=== PATIENT | male | born 1970 | race Caucasian/White ===

== ENCOUNTER 2021-10-03 05:37 | Emergency (ER) | payer OTHER ==
[2021-10-03 06:37] LABS: Basophils # (A) 0.1 k/uL (0-0.2); Basophils % (A) 1 %; Eosinophils % (A) 0 %; HCT 42.3 % (39.0-53.0); HGB 14.7 gm/dL (13.0-17.5); Lymphocytes % (A) 11 %; MCH 31.3 pg (25.0-35.0); MCHC 34.8 g/dL (31.0-37.0); MCV 89.9 fL (80.0-100.0); Monocytes # (A) 0.5 k/uL (0-1.0); Monocytes % (A) 6 %; Neutrophils # (A) 7.5 k/uL (1.3-7.7); Neutrophils % (A) 82 %; Platelet Count 238 k/uL (150-450); RBC 4.71 m/uL (4.30-5.90); RDW 12.2 % (11.5-15.5); WBC 9.2 k/uL (3.8-10.6)
--- NOTE | 2021-10-03 06:39 | ED ---
General Adult HPI - General Chief complaint: Shortness of Breath Stated complaint: SOB Time Seen by Provider: 10/03/21 06:14 Source: patient, RN notes reviewed Mode of arrival: EMS Limitations: no limitations - History of Present Illness Initial comments: Patient 51-year-old male presented to the emergency room today with multiple complaints. Patient does admit that over the last 2 days has not been feeling well. He does admit that he's had slight cough and some congestion. He denies feeling short of breath. Patient does admit that he's felt dehydrated. His been drinking sugar and salt water mixture at home. He does admit that he was able to. He didn't have bowel movement this morning. Patient also admits that he's had some dental pain. Does admit that she's had this going on for some time but seems to be "more tender. Patient denies any other complaints or symptoms currently. Patient denies any recent shortness of breath, chest pain, back pain, abdominal pain, nausea or vomiting, numbness or tingling, dysuria or hematuria, constipation or diarrhea, headaches or visual changes, or any other complaints. - Related Data Previous Rx's Medication Instructions Recorded Amoxicillin/Potassium Clav 1 tab PO BID 10 Days #20 tab 10/03/21 [Augmentin 875-125 Tablet] Allergies Allergy/AdvReac Type Severity Reaction Status Date / Time No Known Allergies Allergy Verified 10/03/21 07:18 Review of Systems ROS Statement: Those systems with pertinent positive or pertinent negative responses have been documented in the HPI. ROS Other: All systems not noted in ROS Statement are negative. Past Medical History Past Medical History: Hypertension Smoking Status: Former smoker General Exam - General Exam Comments Initial Comments: General: The patient is awake and alert, in no distress, and does not appear acutely ill. Eye: Pupils are equal, round and reactive to light, extra-ocular movements are intact. No nystagmus. There is normal conjunctiva bilaterally. No signs of icterus. Ears, nose, mouth and throat: There are moist mucous membranes and no oral lesions. Neck: The neck is supple, there is no tenderness or JVD. Cardiovascular: There is a regular rate and rhythm. No murmur, rub or gallop is appreciated. Respiratory: Lungs are clear to auscultation, respirations are non-labored, breath sounds are equal. No wheezes, stridor, rales, or rhonchi. Gastrointestinal: Soft, non-distended, non-tender abdomen without masses or organomegaly noted. There is no rebound or guarding present. No CVA tenderness. Bowel sounds are unremarkable. Musculoskeletal: Normal ROM, no tenderness. Strength 5/5. Sensation intact. Pulses equal bilaterally 2+. Neurological: A&O x 3. CN II-XII intact, There are no obvious motor or sensory deficits. Coordination appears grossly intact. Speech is normal. Skin: Skin is warm and dry and no rashes or lesions are noted. Psychiatric: Cooperative, appropriate mood & affect, normal judgment. Limitations: no limitations Course Vital Signs 10/03/21 10/03/21 10/03/21 05:43 05:51 06:48 Temperature 100.2 F H Pulse Rate 116 H Respiratory 18 19 Rate Blood Pressure 154/106 O2 Sat by Pulse 96 Oximetry EKG Findings - EKG Comments: EKG Findings:: EKG performed: 0555. Normal sinus tachycardia to 113 bpm. DE interval 166. QRS 102. QT/QTc 311/378. No acute ST changes. Medical Decision Making - Medical Decision Making Patient reexamined is resting comfortable. Patient does admit to feeling better here in the emergency room. He has declined Tylenol. Patient also declined a covid test. Patient has been tachycardic but does have low-grade fever. Patient states he does not want a nasal swab. His chest x-ray is reviewed and does show evidence of pneumonia that would be consistent with a cold.. He also admits to some dental pain. Patient's vitals been stable. Pulse ox remained s table with ambulation. Was discussed with patient about concern for covert pneumonia. He is advised to return to emergency room if the symptoms increase or worsen. He'll be started on antibiotics of Augmentin to cover for pneumonia/dental infection. Is advised return for any other concerns. He states understanding and is agreement. - Lab Data Result diagrams: 10/03/21 06:27 10/03/21 06:27 Lab Results 10/03/21 10/03/21 10/03/21 Range/Units 06:27 06:27 06:27 WBC 9.2 (3.8-10.6) k/uL RBC 4.71 (4.30-5.90) m/uL Hgb 14.7 (13.0-17.5) gm/dL Hct 42.3 (39.0-53.0) % MCV 89.9 (80.0-100.0) fL MCH 31.3 (25.0-35.0) pg MCHC 34.8 (31.0-37.0) g/dL RDW 12.2 (11.5-15.5) % Plt Count 238 (150-450) k/uL MPV 8.0 Neutrophils % 82 % Lymphocytes % 11 % Monocytes % 6 % Eosinophils % 0 % Basophils % 1 % Neutrophils # 7.5 (1.3-7.7) k/uL Lymphocytes # 1.0 (1.0-4.8) k/uL Monocytes # 0.5 (0-1.0) k/uL Eosinophils # 0.0 (0-0.7) k/uL Basophils # 0.1 (0-0.2) k/uL D-Dimer (<0.60) mg/L FEU Sodium 128 L (137-145) mmol/L Potassium 3.7 (3.5-5.1) mmol/L Chloride 98 (98-107) mmol/L Carbon Dioxide 22 (22-30) mmol/L Anion Gap 8 mmol/L BUN 15 (9-20) mg/dL Creatinine 1.14 (0.66-1.25) mg/dL Est GFR (CKD-EPI)AfAm 87 (>60 ml/min/1.73 sqM) Est GFR (CKD-EPI)NonAf 76 (>60 ml/min/1.73 sqM) Glucose 127 H (74-99) mg/dL Calcium 7.9 L (8.4-10.2) mg/dL Total Bilirubin 1.0 (0.2-1.3) mg/dL AST 72 H (17-59) U/L ALT 39 (4-49) U/L Alkaline Phosphatase 35 L (38-126) U/L Troponin I (0.000-0.034) ng/mL Total Protein 6.9 (6.3-8.2) g/dL Albumin 3.8 (3.5-5.0) g/dL Urine Color Colorless Urine Appearance Clear (Clear) Urine pH 6.0 (5.0-8.0) Ur Specific [place] 1.002 (1.001-1.035) Urine Protein Negative (Negative) Urine Glucose (UA) Negative (Negative) Urine Ketones Negative (Negative) Urine Blood Small H (Negative) Urine Nitrite Negative (Negative) Urine Bilirubin Negative (Negative) Urine Urobilinogen <2.0 (<2.0) mg/dL Ur Leukocyte Esterase Negative (Negative) Urine RBC <1 (0-5) /hpf 10/03/21 10/03/21 Range/Units 06:27 06:28 WBC (3.8-10.6) k/uL RBC (4.30-5.90) m/uL Hgb (13.0-17.5) gm/dL Hct (39.0-53.0) % MCV (80.0-100.0) fL MCH (25.0-35.0) pg MCHC (31.0-37.0) g/dL RDW (11.5-15.5) % Plt Count (150-450) k/uL MPV Neutrophils % % Lymphocytes % % Monocytes % % Eosinophils % % Basophils % % Neutrophils # (1.3-7.7) k/uL Lymphocytes # (1.0-4.8) k/uL Monocytes # (0-1.0) k/uL Eosinophils # (0-0.7) k/uL Basophils # (0-0.2) k/uL D-Dimer 0.59 (<0.60) mg/L FEU Sodium (137-145) mmol/L Potassium (3.5-5.1) mmol/L Chloride (98-107) mmol/L Carbon Dioxide (22-30) mmol/L Anion Gap mmol/L BUN (9-20) mg/dL Creatinine (0.66-1.25) mg/dL Est GFR (CKD-EPI)AfAm (>60 ml/min/1.73 sqM) Est GFR (CKD-EPI)NonAf (>60 ml/min/1.73 sqM) Glucose (74-99) mg/dL Calcium (8.4-10.2) mg/dL Total Bilirubin (0.2-1.3) mg/dL AST (17-59) U/L ALT (4-49) U/L Alkaline Phosphatase (38-126) U/L Troponin I <0.012 (0.000-0.034) ng/mL Total Protein (6.3-8.2) g/dL Albumin (3.5-5.0) g/dL Urine Color Urine Appearance (Clear) Urine pH (5.0-8.0) Ur Specific [place] (1.001-1.035) Urine Protein (Negative) Urine Glucose (UA) (Negative) Urine Ketones (Negative) Urine Blood (Negative) Urine Nitrite (Negative) Urine Bilirubin (Negative) Urine Urobilinogen (<2.0) mg/dL Ur Leukocyte Esterase (Negative) Urine RBC (0-5) /hpf Disposition Clinical Impression: CAP (community acquired pneumonia), Pain, dental Disposition: HOME SELF-CARE Condition: Good Instructions (If sedation given, give patient instructions): COVID-19 (Coronavirus Disease 2019) (ED) Additional Instructions: Please use medication as discussed. Please follow-up with family doctor in the next 2 days of symptoms have not improved. Please return to emergency room if the symptoms increase or worsen or for any other concerns. Prescriptions: Amoxicillin/Potassium Clav [Augmentin 875-125 Tablet] 1 tab PO BID 10 Days #20 tab Is patient prescribed a controlled substance at d/c from ED?: No If prescribed controlled substance>3 days was MAPS reviewed?: Prescribed <3 Days Referrals: None,Stated [Primary Care Provider] - 1-2 days Time of Disposition: 07:32
[2021-10-03] MEDS: ACETAMINOPHEN TAB 500 MG TAB PO STA ×2 (06:41→07:23)
[2021-10-03 06:46] LABS: Appearance,Urine Clear (Clear); Bilirubin,Urine Negative (Negative); Blood,Urine Small (Negative); Color,Urine Colorless; Glucose,Urine (UA) Negative (Negative); Ketones,Urine Negative (Negative); Leukocyte Esterase,Urine Negative (Negative); Nitrite,Urine Negative (Negative); Protein,Urine Negative (Negative); RBC,Urine <1 /hpf (0-5); Specific Gravity,Urine 1.002 (1.001-1.035); Urobilinogen,Urine <2.0 mg/dL (<2.0)
[2021-10-03 06:47] LABS: Albumin 3.8 g/dL (3.5-5.0); Calcium 7.9 mg/dL (8.4-10.2); Potassium 3.7 mmol/L (3.5-5.1); Total Protein 6.9 g/dL (6.3-8.2)
--- NOTE | 2021-10-03 06:55 | XR ---
EXAM: XR Chest, 1 View CLINICAL HISTORY: ITS.REASON XR Reason: cough TECHNIQUE: Frontal view of the chest. COMPARISON: No relevant prior studies available. FINDINGS: Lungs: Low lung volume accentuate lung markings in cardiovascular silhouette. Bilateral patchy interstitial/airspace disease. Pleural space: No significant effusion. No pneumothorax. Heart: Cardiovascular silhouette, upper limits of normal, likely accentuated by low lung volume. Mediastinum: Mildly tortuous thoracic aorta. Bones/joints: Unremarkable. Tubes, lines and devices: Overlying chest leads obscure portion of the chest. IMPRESSION: 1. Low lung volume limit evaluation. 2. Developing patchy bilateral pneumonia.
[2021-10-03] MEDS ORDERED: ACETAMINOPHEN TAB 500 MG TAB PO STA (07:24)
[2021-10-03] MEDS: SODIUM CHLORIDE 0.9% 500 ML 500 ML IV STA ×2 (07:28→07:32)
[2021-10-03 07:51] VITALS: BP 124/69; PULSE 78; RESP 18; TEMP 98.6
== END 2021-10-03 07:50 | disposition home or self-care (01) ==
LOC: EC 05:37
DX: J18.9 Pneumonia, unspecified organism (principal); K08.89 Other specified disorders of teeth and supporting structures; Z87.891 Personal history of nicotine dependence
CPT/HCPCS: 36415; 71045; 80053; 81001; 84484; 85025; 85379; 93005; 99285

== ENCOUNTER 2021-10-11 21:58 | Inpatient (IN) | payer OTHER ==
--- NOTE | 2021-10-12 01:00 | ED ---
Psych HPI - General Chief Complaint: Psychiatric Symptoms Stated Complaint: Mental health eval. Time Seen by Provider: 10/12/21 00:40 Source: patient, RN notes reviewed, old records reviewed Mode of arrival: ambulatory Limitations: altered mental status - History of Present Illness Initial Comments: This is a 51-year-old male acutely psychotic presented for a welfare check. Patient really is a poor story and rambles on an accurate history. Patient will have psychiatric evaluation MD Complaint: altered mental status -: unknown Associated Psychiatric Symptoms: racing thoughts History of same: Yes Quality: constant Improves With: none Worsens With: none Context: significant life stressor Associated Symptoms: denies other symptoms Treatments Prior to Arrival: placed on mental health hold - Related Data Previous Rx's Medication Instructions Recorded Amoxicillin/Potassium Clav 1 tab PO BID 10 Days #20 tab 10/03/21 [Augmentin 875-125 Tablet] Allergies Allergy/AdvReac Type Severity Reaction Status Date / Time No Known Allergies Allergy Verified 10/11/21 22:16 Review of Systems ROS Statement: Those systems with pertinent positive or pertinent negative responses have been documented in the HPI. ROS Other: All systems not noted in ROS Statement are negative. Past Medical History Past Medical History: Hypertension Additional Past Medical History / Comment(s): double pneumonia History of Any Multi-Drug Resistant Organisms: None Reported Additional Past Surgical History / Comment(s): skull fractures Past Psychological History: No Psychological Hx Reported Smoking Status: Former smoker Past Alcohol Use History: None Reported Past Drug Use History: Marijuana General Exam Limitations: no limitations, altered mental status General appearance: alert, in no apparent distress Head exam: Present: atraumatic, normocephalic, normal inspection Eye exam: Present: normal appearance, PERRL, EOMI. Absent: scleral icterus, conjunctival injection, periorbital swelling ENT exam: Present: normal exam, mucous membranes moist Neck exam: Present: normal inspection. Absent: tenderness, meningismus, lymphadenopathy Respiratory exam: Present: normal lung sounds bilaterally. Absent: respiratory distress, wheezes, rales, rhonchi, stridor Cardiovascular Exam: Present: regular rate, normal rhythm, normal heart sounds. Absent: systolic murmur, diastolic murmur, rubs, gallop, clicks GI/Abdominal exam: Present: soft, normal bowel sounds. Absent: distended, tenderness, guarding, rebound, rigid Extremities exam: Present: normal inspection, full ROM, normal capillary refill. Absent: tenderness, pedal edema, joint swelling, calf tenderness Back exam: Present: normal inspection Neurological exam: Present: alert, oriented X3, CN II-XII intact Psychiatric exam: Present: normal affect, normal mood Skin exam: Present: warm, dry, intact, normal color. Absent: rash Course Vital Signs 10/11/21 22:11 Temperature 98.2 F Pulse Rate 117 H Respiratory 18 Rate Blood Pressure 105/79 O2 Sat by Pulse 96 Oximetry - Reevaluation(s) Reevaluation #1: 10/12/21 06:48 Medical records reviewed Reevaluation #2: 10/12/21 06:48 Medically clear for psychiatric evaluation Medical Decision Making - Medical Decision Making 47 male to the emergency for evaluation. Patient seen in however psychiatry here in the ER. Not homicidal or suicidal can be discharged home - Lab Data Result diagrams: 10/12/21 04:38 10/12/21 04:38 Lab Results 10/12/21 10/12/21 10/12/21 Range/Units 04:21 04:38 04:38 WBC 14.6 H (3.8-10.6) k/uL RBC 4.76 (4.30-5.90) m/uL Hgb 14.4 (13.0-17.5) gm/dL Hct 43.1 (39.0-53.0) % MCV 90.6 (80.0-100.0) fL MCH 30.3 (25.0-35.0) pg MCHC 33.4 (31.0-37.0) g/dL RDW 12.8 (11.5-15.5) % Plt Count 715 H D (150-450) k/uL MPV 7.4 Neutrophils % 71 % Lymphocytes % 20 % Monocytes % 6 % Eosinophils % 1 % Basophils % 0 % Neutrophils # 10.4 H (1.3-7.7) k/uL Lymphocytes # 2.9 (1.0-4.8) k/uL Monocytes # 0.8 (0-1.0) k/uL Eosinophils # 0.1 (0-0.7) k/uL Basophils # 0.0 (0-0.2) k/uL Sodium 134 L (137-145) mmol/L Potassium 4.2 (3.5-5.1) mmol/L Chloride 94 L (98-107) mmol/L Carbon Dioxide 27 (22-30) mmol/L Anion Gap 13 mmol/L BUN 36 H (9-20) mg/dL Creatinine 1.13 (0.66-1.25) mg/dL Est GFR (CKD-EPI)AfAm 88 (>60 ml/min/1.73 sqM) Est GFR (CKD-EPI)NonAf 76 (>60 ml/min/1.73 sqM) Glucose 95 (74-99) mg/dL Calcium 9.0 (8.4-10.2) mg/dL Phosphorus 4.9 H (2.5-4.5) mg/dL Magnesium 2.7 H (1.6-2.3) mg/dL Total Bilirubin 1.2 (0.2-1.3) mg/dL AST 154 H (17-59) U/L ALT 128 H (4-49) U/L Alkaline Phosphatase 54 (38-126) U/L Total Protein 7.9 (6.3-8.2) g/dL Albumin 4.3 (3.5-5.0) g/dL Urine Opiates Screen Not Detected (NotDetected) Ur Oxycodone Screen Not Detected (NotDetected) Urine Methadone Screen Not Detected (NotDetected) Ur Propoxyphene Screen Not Detected (NotDetected) Acetaminophen <10.0 ug/mL Ur Barbiturates Screen Not Detected (NotDetected) U Tricyclic Antidepress Not Detected (NotDetected) Ur Phencyclidine Scrn Not Detected (NotDetected) Ur Amphetamines Screen Not Detected (NotDetected) U Methamphetamines Scrn Not Detected (NotDetected) U Benzodiazepines Scrn Not Detected (NotDetected) Urine Cocaine Screen Not Detected (NotDetected) U Marijuana (THC) Screen Not Detected (NotDetected) Disposition Clinical Impression: Acute psychosis, Acute anxiety Disposition: HOME SELF-CARE Condition: Fair Instructions (If sedation given, give patient instructions): Brief Psychotic Disorder (ED) Is patient prescribed a controlled substance at d/c from ED?: No Referrals: None,Stated [Primary Care Provider] - 1-2 days
[2021-10-12 04:56] LABS: Basophils % (A) 0 %; Eosinophils # (A) 0.1 k/uL (0-0.7); Eosinophils % (A) 1 %; HCT 43.1 % (39.0-53.0); HGB 14.4 gm/dL (13.0-17.5); Lymphocytes # (A) 2.9 k/uL (1.0-4.8); Lymphocytes % (A) 20 %; MCH 30.3 pg (25.0-35.0); MCHC 33.4 g/dL (31.0-37.0); MCV 90.6 fL (80.0-100.0); Mean Platelet Volume 7.4; Monocytes # (A) 0.8 k/uL (0-1.0); Monocytes % (A) 6 %; Neutrophils # (A) 10.4 k/uL (1.3-7.7); Neutrophils % (A) 71 %; RBC 4.76 m/uL (4.30-5.90); RDW 12.8 % (11.5-15.5); WBC 14.6 k/uL (3.8-10.6)
[2021-10-12 05:11] LABS: ALT 128 U/L (4-49); AST 154 U/L (17-59); Acetaminophen <10.0 ug/mL; African American GFR (CKD) 88 (>60 ml/min/1.73 sqM); Albumin 4.3 g/dL (3.5-5.0); Alkaline Phosphatase 54 U/L (38-126); Anion Gap 13 mmol/L; Blood Urea Nitrogen 36 mg/dL (9-20); Carbon Dioxide 27 mmol/L (22-30); Chloride 94 mmol/L (98-107); Glucose 95 mg/dL (74-99); Magnesium 2.7 mg/dL (1.6-2.3); Non-African American GFR(CKD) 76 (>60 ml/min/1.73 sqM); Phosphorus 4.9 mg/dL (2.5-4.5); Potassium 4.2 mmol/L (3.5-5.1); Sodium 134 mmol/L (137-145); Total Bilirubin 1.2 mg/dL (0.2-1.3); Total Protein 7.9 g/dL (6.3-8.2)
[2021-10-12 05:16] LABS: Platelet Count 715 k/uL (150-450)
[2021-10-12 06:21] LABS: Amphetamine Screen,Urine Not Detected (NotDetected); Barbiturate Screen,Urine Not Detected (NotDetected); Benzodiazepines Screen,Urine Not Detected (NotDetected); Cocaine Screen,Urine Not Detected (NotDetected); Methadone Screen, Urine Not Detected (NotDetected); Opiate Screen,Urine Not Detected (NotDetected); Oxycodone Screen, Urine Not Detected (NotDetected); Phencyclidine Screen,Urine Not Detected (NotDetected); Tricyclic Antidepressant,Urine Not Detected (NotDetected); Urn Cannabinoid Scrn Not Detected (NotDetected)
[2021-10-12] MEDS ORDERED: SODIUM CHLORIDE 0.9% 1,000 ML IV ONE (08:06)
[2021-10-12] MEDS ORDERED: LORazepam 2 MG/ML INJ IV STA (08:23)
[2021-10-12 08:46] LABS: Basophils # (A) 0.1 k/uL (0-0.2); Basophils % (A) 0 %; Eosinophils # (A) 0.1 k/uL (0-0.7); Eosinophils % (A) 0 %; HCT 43.1 % (39.0-53.0); HGB 14.7 gm/dL (13.0-17.5); Lymphocytes # (A) 2.5 k/uL (1.0-4.8); Lymphocytes % (A) 17 %; MCHC 34.1 g/dL (31.0-37.0); MCV 90.8 fL (80.0-100.0); Mean Platelet Volume 7.3; Monocytes # (A) 0.8 k/uL (0-1.0); Monocytes % (A) 6 %; Neutrophils % (A) 74 %; Platelet Count 700 k/uL (150-450); RBC 4.75 m/uL (4.30-5.90); RDW 12.9 % (11.5-15.5); WBC 14.8 k/uL (3.8-10.6)
[2021-10-12 08:47] LABS: Albumin 4.2 g/dL (3.5-5.0); Calcium 9.2 mg/dL (8.4-10.2); Magnesium 2.6 mg/dL (1.6-2.3); Potassium 4.1 mmol/L (3.5-5.1); Total Bilirubin 1.2 mg/dL (0.2-1.3); Total Protein 7.9 g/dL (6.3-8.2)
--- NOTE | 2021-10-12 09:13 | XR ---
EXAMINATION TYPE: XR chest 2V DATE OF EXAM: 10/12/2021 COMPARISON: Chest x-ray 9 days ago HISTORY: Altered mental status and weakness. TECHNIQUE: Frontal and lateral views of the chest are obtained. FINDINGS: Persistent low lung volumes with increased interstitial markings bilaterally. No pleural e ffusion or pneumothorax is seen bilaterally The cardiac silhouette size is stable and upper limits of normal. The osseous structures are intact. IMPRESSION: Low lung volumes with bilateral increased markings could reflect edema and/or infiltrate s. No significant change from most recent x-ray. Correlation with old outside x-ray and/or CT would b e beneficial to exclude chronic changes.
--- NOTE | 2021-10-12 09:15 | CT ---
EXAMINATION TYPE: CT brain wo con DATE OF EXAM: 10/12/2021 COMPARISON: None. HISTORY: altered mental status CT DLP: 1115.4 mGycm. Automated Exposure Control for Dose Reduction was Utilized. TECHNIQUE: CT scan of the head is performed without contrast. FINDINGS: Slightly suboptimal due to artifact degradation. There is no obvious acute intracranial h emorrhage, mass effect, or midline shift identified. The ventricles and sulci are within normal limi ts in size. Storey-white matter differentiation is maintained. Partial visualization of surgical modi e to the left maxillary sinus wall. The globes are intact and the visualized sinuses are clear. IMPRESSION: No acute intracranial hemorrhage or midline shift is seen.
--- NOTE | 2021-10-12 10:10 | US ---
EXAMINATION TYPE: US gallbladder DATE OF EXAM: 10/12/2021 COMPARISON: NONE CLINICAL HISTORY: AMS, transaminitis. EXAM MEASUREMENTS: Liver Length: 16.8 cm Gallbladder Wall: 0.3 cm Right Kidney: 10.7 x 5.1 x 4.4 cm technical limitations due to large amount of overlying bowel content Pancreas: Obscured by bowel gas Liver: limited evaluation. Attenuating Gallbladder: no evidence of stones as visualized Evidence for sonographic Conley's sign: no CBD: Obscured by overlying bowel gas Right Kidney: no evidence of hydronephrosis Suboptimal evaluation of pancreas on initial images. Visualized liver is markedly heterogeneously hyp erechoic. Evaluation for focal masses suboptimal due to the heterogeneity. Visualized portion of the gallbladder shows no shadowing mobile intraluminal gallstones. No right-sided hydronephrosis. No obvi ous intrahepatic biliary dilatation. Common bile duct could not be visualized. IMPRESSION: Suboptimal study. Marked heterogeneous hyperechoic appearance of the liver could reflect product of diffuse fatty infiltration and/or underlying hepatocellular disease. No visualized gallsto cristhian or ultrasound evidence for acute cholecystitis.
[2021-10-12] MEDS ORDERED: LORazepam 2 MG/ML INJ IV PRN (12:50)
[2021-10-12] MEDS ORDERED: NALOXONE 0.4 MG/ML 1 ML VIAL IV PRN (12:50)
--- NOTE | 2021-10-12 13:33 | P.PN ---
Progress Note - Text Progress Note Date: 10/12/[address] Harris and appears appropriate for inpatient with SIRS criteria with high HR and WBC 14 on arrival in conjunction with thrombosytosis, elevated liver enzymes and altered mentation. Adequate workup and treatment will take over 2 midnight and discharge at this point is unsafe as patient high risk for clinical worsening.
[2021-10-12 19:38] VITALS: RESP 18
[2021-10-12] MEDS: SODIUM CHLORIDE 0.9% 1,000 ML IV SCH ×2 (19:39→23:07)
[2021-10-12 20:09] LABS: Appearance,Urine Clear (Clear); Bilirubin,Urine Negative (Negative); Blood,Urine Negative (Negative); Color,Urine Yellow; Glucose,Urine (UA) Negative (Negative); Leukocyte Esterase,Urine Negative (Negative); Nitrite,Urine Negative (Negative); PH, Urine 5.5 (5.0-8.0); Protein,Urine Negative (Negative); Specific Gravity,Urine 1.014 (1.001-1.035); Urobilinogen,Urine <2.0 mg/dL (<2.0)
[2021-10-12 20:12] LABS: Ketones,Urine 2+ (Negative)
[2021-10-12] MEDS ORDERED: HALOPERIDOL LACTATE 5 MG/ML 1 ML VIAL IM PRN (20:36)
[2021-10-12] MEDS ORDERED: LORazepam 2 MG/ML INJ IM PRN (20:37)
--- NOTE | 2021-10-12 22:37 | P.HPIM ---
History of Present Illness H&P Date: 10/12/21 Chief Complaint: Acute psychosis Patient is a 51-year-old male with a known history of hypertension currently not taking any medications, previous history of smoking and also marijuana use was presented to ER for a welfare check. Patient could not provide any history at this time. Patient was admitted to hospital for psychiatric evaluation. On admission patient has SIRS with tachycardia and leukocytosis and elevated liver enzymes. Patient was admitted inpatient service for further evaluation. Psychiatry was consulted. Patient has been afebrile. Could not provide any history at this time. Chest x-ray showed low lung volumes with bilateral increased markings could reflect edema/infiltrates. No significant change from most recent chest x-ray. Correlate with old outside chest x-ray or CT would be beneficial. Fluid chronic changes. CT head showed no acute intracranial hemorrhage or midline shift seen. Gallbladder ultrasound showed suboptimal study. A marker heterogenous hypertrophic appearance of the liver could reflect Diffuse fatty infiltration and underlying hepatocellular disease. No visualized gallstones are ultrasound evidence for acute cholecystitis. Laboratory showed WBC 14.6 hemoglobin 14.4 and platelets 715 Sodium 134 potassium 4.2 chloride 94 BUN 36 and creatinine 1.13 Phosphorus 4.9 magnesium 2.7 AST 134 ALT 128 alk phos 54 UDS negative and coronavirus PCR not detected. On admission heart rate 117, respiratory rate 18 and blood pressure 105/79 pulse ox 96% on room air. Patient has been afebrile. Review of Systems Complete review of systems could not be obtained from the patient at this time. Past Medical History Past Medical History: Hypertension Additional Past Medical History / Comment(s): double pneumonia History of Any Multi-Drug Resistant Organisms: None Reported Additional Past Surgical History / Comment(s): skull fractures Past Psychological History: No Psychological Hx Reported Smoking Status: Former smoker Past Alcohol Use History: None Reported Past Drug Use History: Marijuana - Past Family History Father Family Medical History: Unable to Obtain Mother Family Medical History: Unable to Obtain Medications and Allergies Home Medications Medication Instructions Recorded Confirmed Type Amoxicillin/Potassium Clav 1 tab PO BID 10 Days #20 tab 10/03/21 10/12/21 Rx [Augmentin 875-125 Tablet] Allergies Allergy/AdvReac Type Severity Reaction Status Date / Time No Known Allergies Allergy Verified 10/12/21 13:35 Physical Exam Vitals: Vital Signs Temp Pulse Resp BP Pulse Ox 10/12/21 07:29 78 16 129/61 98 10/11/21 22:11 98.2 F 117 H 18 105/79 96 PHYSICAL EXAMINATION: Patient is lying in the bed comfortably, no acute distress. Could not provide any history. HEENT: Normocephalic. Neck is supple. Pupils reactive. Nostrils clear. Oral cavity is moist. Neck reveals no JVD, carotid bruits, or thyromegaly. CHEST EXAMINATION: Trachea is central. Symmetrical expansion. Lung gaona clear to auscultation and percussion. CARDIAC: Normal S1, S2 with no gallops. No murmurs ABDOMEN: Soft. Bowel sounds normal. No organomegaly. No abdominal bruits. Extremities: reveal no edema. No clubbing or cyanosis Neurologically patient is drowsy and lethargic. No gross focal neurological deficit. Skin: No rash or skin lesions. Psychiatric: Could not be assessed at this time. Musculoskeletal: No joint swelling or deformity. Results CBC & Chem 7: 10/12/21 08:33 10/12/21 08:33 Labs: Abnormal Lab Results - Last 24 Hours (Table) 10/12/21 10/12/21 10/12/21 Range/Units 04:38 04:38 08:33 WBC 14.6 H 14.8 H (3.8-10.6) k/uL Plt Count 715 H D 700 H (150-450) k/uL Neutrophils # 10.4 H 11.0 H (1.3-7.7) k/uL Sodium 134 L (137-145) mmol/L Chloride 94 L (98-107) mmol/L BUN 36 H (9-20) mg/dL Glucose (74-99) mg/dL Phosphorus 4.9 H (2.5-4.5) mg/dL Magnesium 2.7 H (1.6-2.3) mg/dL AST 154 H (17-59) U/L ALT 128 H (4-49) U/L 10/12/21 Range/Units 08:33 WBC (3.8-10.6) k/uL Plt Count (150-450) k/uL Neutrophils # (1.3-7.7) k/uL Sodium 135 L (137-145) mmol/L Chloride (98-107) mmol/L BUN 37 H (9-20) mg/dL Glucose 110 H (74-99) mg/dL Phosphorus (2.5-4.5) mg/dL Magnesium 2.6 H (1.6-2.3) mg/dL AST 155 H (17-59) U/L ALT 124 H (4-49) U/L Thrombosis Risk Factor Assmnt - DVT/VTE Prophylaxis DVT/VTE Prophylaxis: Pharmacologic Prophylaxis ordered Assessment and Plan Assessment: SIRS. Leukocytosis and tachycardia. Likely due to agitation. Rule out infection source. Chest x-ray is negative for any acute process. Urinalysis was ordered. Acute psychosis with manic features on admission. Hypovolemic hyponatremia Elevated BUN level Elevated AST and ALT due to fatty infiltration of the liver. Thrombocytosis DVT prophylaxis with heparin subcu. Plan: Patient be continued on IV hydration and follow-up urinalysis. Repeat CBC, BMP, TSH and CRP. Hepatitis panel was ordered. Haldol and Ativan as needed for agitation. Psychiatry was consulted. Continue to follow closely. Time with Patient: Greater than 30
[2021-10-12] MEDS: HEPARIN SODIUM,PORCINE/PF 5,000 UNIT/0.5 ML SYRINGE SQ SCH (23:07)
[2021-10-13] MEDS: HEPARIN SODIUM,PORCINE/PF 5,000 UNIT/0.5 ML SYRINGE SQ SCH ×2 (08:25→17:45)
[2021-10-13 09:02] LABS: African American GFR (CKD) >90 (>60 ml/min/1.73 sqM); Anion Gap 12 mmol/L; Blood Urea Nitrogen 25 mg/dL (9-20); Calcium 8.3 mg/dL (8.4-10.2); Carbon Dioxide 27 mmol/L (22-30); Chloride 90 mmol/L (98-107); Glucose 105 mg/dL (74-99); Non-African American GFR(CKD) >90 (>60 ml/min/1.73 sqM); Potassium 3.5 mmol/L (3.5-5.1); Sodium 129 mmol/L (137-145)
[2021-10-13 10:48] LABS: Basophils # (A) 0.03 X 10*3/uL (0.00-0.10); Basophils % (A) 0.3 %; Eosinophils # (A) 0.05 X 10*3/uL (0.04-0.35); Eosinophils % (A) 0.4 %; HCT 39.1 % (39.6-50.0); HGB 12.7 g/dL (13.0-17.0); Immature Grans, Automated 0.8 %; Lymphocytes # (A) 1.72 X 10*3/uL (0.90-5.00); Lymphocytes % (A) 14.9 %; MCH 29.5 pg (27.0-32.0); MCHC 32.5 g/dL (32.0-37.0); MCV 90.9 fL (80.0-97.0); Mean Platelet Volume 9.6 fL (9.5-12.2); Monocytes % (A) 8.6 %; NRBC Per 100 WBC 0 /100 WBCS (0.0-0.0); Neutrophils # (A) 8.68 X 10*3/uL (1.80-7.70); Platelet Count 484 X 10*3/uL (140-440); RDW 11.9 % (11.5-14.5); WBC 11.57 X 10*3/uL (4.50-10.00)
[2021-10-13 11:11] LABS: Hepatitis A Antibody IgM Nonreactive (Nonreactive); Hepatitis B Core IgM Nonreactive (Nonreactive); Hepatitis B Surface Antigen Nonreactive (Nonreactive); Hepatitis C IgG Antibody Nonreactive (Nonreactive)
[2021-10-13] MEDS ORDERED: haloperidoL 5 MG TAB PO PRN (13:29)
[2021-10-13 14:14] VITALS: BP 148/88; PULSE 100; TEMP 98.8
--- NOTE | 2021-10-13 14:40 | P.DS ---
Providers Date of admission: 10/12/21 12:50 Expected date of discharge: 10/13/21 Attending physician: Joey Wise Consults: 10/12/21 12:51 Consult Physician Routine Consulting Provider: Speedy Vásquez Reason/Comments: Manic, acute psychosis Do you want consulting provider notified?: Already Contacted Primary care physician: Stated None Hospital Course: Final diagnosis SIRS. Present on admission with Leukocytosis and tachycardia. Likely due to agitation. Ruled out infection source Acute psychosis with manic features on admission. Hypovolemic hyponatremia Elevated BUN level Elevated AST and ALT due to fatty infiltration of the liver. Thrombocytosis DVT prophylaxis Full code Discharge disposition Patient is being transferred in a stable condition with guarded prognosis to 3 W inpatient psychiatric unit for further psychiatric evaluation. Patient will follow-up with Dr. Knight in the outpatient setting upon discharge. Sources provided as patient does not currently have an established primary care provider. Will also need close outpatient follow-up with his psychiatrist on discharge. Total time taken is greater than 35 minutes. Hospital course This is a 51-year-old male who was recently admitted for altered mental status and was originally brought to the hospital for psychiatric evaluation although was found to have an elevated white blood count, elevated liver enzymes, SIRS and tachycardia. Imaging was negative and patient also had a gallbladder ultrasound along with liver ultrasound showing diffuse fatty infiltration and underlying hepatocellular disease. Patient did have elevated liver enzymes and recommend following up in the outpatient setting with repeat labs in the next 2- 3 days. Sodium level mildly low at 129 and patient needs reinforcement and encouragement on oral intake. Per nursing staff patient is only eating applesauce and continues to refuse medications. Patient was evaluated by psychiatry recommending transfer to inpatient psychiatric unit for further evaluation. Patient does not currently have a primary care provider and resources provided to establish with one in the outpatient setting. Strongly recommended to continue following with his psychiatrist in the outpatient setting. Currently no reports of chest pain, shortness of breath, or palpitations. Patient is afebrile. No reports of nausea or vomiting and patient is tolerating diet. Patient will be transferred to inpatient psychiatric facility today. PHYSICAL EXAMINATION: Patient is lying in the bed comfortably, no acute distress. Could not provide any history. HEENT: Normocephalic. Neck is supple. Pupils reactive. Nostrils clear. Oral cavity is moist. Neck reveals no JVD, carotid bruits, or thyromegaly. CHEST EXAMINATION: Trachea is central. Symmetrical expansion. Lung gaona clear to auscultation and percussion. CARDIAC: Normal S1, S2 with no gallops. No murmurs ABDOMEN: Soft. Bowel sounds normal. No organomegaly. No abdominal bruits. Extremities: reveal no edema. No clubbing or cyanosis Neurologically patient is drowsy and lethargic. No gross focal neurological deficit. Skin: No rash or skin lesions. Psychiatric: Could not be assessed at this time. Musculoskeletal: No joint swelling or deformity. Please refer to medication reconciliation sheet for a list of medications. The impression and plan of care has been dictated by Josiane Newton, Nurse Practitioner as directed. Dr. Candy MD I have performed a history and examination and MDM of this patient, discussed the same with the dictator, and agree with the dictator's assessment and plan as written ,documented as a scribe. Based on total visit time, I have performed more than 50% of the visit. Patient Condition at Discharge: Fair Plan - Discharge Summary Discharge Rx Participant: Yes New Discharge Prescriptions: New haloperidoL [Haldol] 5 mg PO QID PRN tab PRN Reason: Agitation Or Acute Psychosis Discontinued Amoxicillin/Potassium Clav [Augmentin 875-125 Tablet] 1 tab PO BID 10 Days #20 tab Discharge Medication List haloperidoL [Haldol] 5 mg PO QID PRN tab 10/13/21 [Rx] Follow up Appointment(s)/Referral(s): Christine Knight MD [STAFF PHYSICIAN] - 1 Week Patient Instructions/Handouts: Brief Psychotic Disorder (ED) Activity/Diet/Wound Care/Special Instructions: Patient is medically stable and clear for transfer to inpatient psychiatric unit on 3 W. Activity as tolerated Continue regular diet Patient needs to establish with a primary care provider on discharge resources p rovided Continue to follow with [facility] outpatient Comment follow-up and monitoring of CBC, CMP along with ALT, AST in the next 2 days Encourage oral intake Discharge Disposition: TRANSFER TO PSYCH HOSP/UNIT
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
[2021-10-13 17:30] LABS: African American GFR (CKD) >90 (>60 ml/min/1.73 sqM); Anion Gap 7 mmol/L; Blood Urea Nitrogen 19 mg/dL (9-20); Calcium 8.8 mg/dL (8.4-10.2); Carbon Dioxide 32 mmol/L (22-30); Chloride 92 mmol/L (98-107); Glucose 100 mg/dL (74-99); Non-African American GFR(CKD) >90 (>60 ml/min/1.73 sqM); Potassium 3.7 mmol/L (3.5-5.1); Sodium 131 mmol/L (137-145)
== END 2021-10-13 19:18 | DRG 885 ==
LOC: EC 21:58 → 4SSUR 10-12 12:50
PROVIDERS: ADMIT Internal Medicine; ATTEND Internal Medicine
DX: F30.2 Manic episode, severe with psychotic symptoms (principal); R65.10 Systemic inflammatory response syndrome (SIRS) of non-infectious origin without acute organ dysfunction; E87.1 Hypo-osmolality and hyponatremia; R45.1 Restlessness and agitation; F41.9 Anxiety disorder, unspecified; K76.0 Fatty (change of) liver, not elsewhere classified; E86.1 Hypovolemia; I10 Essential (primary) hypertension; Z87.891 Personal history of nicotine dependence; Z87.01 Personal history of pneumonia (recurrent); D75.839 Thrombocytosis, unspecified; Z20.822 Contact with and (suspected) exposure to COVID-19
CPT/HCPCS: 36415; 70450; 71046; 76705; 80048; 80053; 80074; 80143; 80306; 81003; 82075; 82140; 83735; 84100; 84443; 85025; 86140; 87635; 96361; 96374; 96376; 99285